=== PATIENT | female | born 1925 | race African-American/Black ===

== ENCOUNTER 2016-10-25 11:00 | Emergency (ER) | payer MEDICARE ==
[~2016-10-25] VITALS: Ht 160 cm; Wt 42.2 kg
[2016-10-25 11:30] VITALS: BP 145/56
[2016-10-25 12:13] VITALS: BP 151/66
[2016-10-25 12:51] LABS: APPEARANCE,URINE CLEAR; BASOPHILS % (AUTO) 0.3 % (0.0-2.0); EOSINOPHILS % (AUTO) 0.2 % (0.0-3.0); KETONES,URINE NEGATIVE (NEGATIVE); LEUKOCYTE ESTERASE ,URINE NEGATIVE (NEGATIVE); LYMPHOCYTES % (AUTO) 12.1 % (20.0-45.0); MEAN CORPUSCULAR HEMOGLOBIN 28.8 PG (27.0-31.0); MEAN CORPUSCULAR HGB CONC 30.9 G/DL (32.0-36.0); MEAN CORPUSCULAR VOLUME 93 FL (80-99); MEAN PLATELET VOLUME 6.1 FL (6.5-10.1); MONOCYTES % (AUTO) 6.3 % (1.0-10.0); NEUTROPHILS % (AUTO) 81.2 % (45.0-75.0); NITRITE,URINE NEGATIVE (NEGATIVE); PH,URINE 7 (4.5-8.0); PLATELET COUNT 241 K/UL (150-450); PROTEIN,URINE NEGATIVE (NEGATIVE); RED BLOOD COUNT 3.43 M/UL (4.20-5.40); RED CELL DISTRIBUTION WIDTH 12.9 % (11.6-14.8); UROBILINOGEN,URINE NORMAL MG/DL (0.0-1.0); WHITE BLOOD COUNT 7.7 K/UL (4.8-10.8)
[2016-10-25 12:56] LABS: TROPONIN I < 0.30 ng/mL (<=0.30)
[2016-10-25 12:57] LABS: ALANINE AMINOTRANSFERASE 15 U/L (3-33); ALBUMIN/GLOBULIN RATIO 0.9 (1.0-2.7); ANION GAP 15 (5-15); ASPARTATE AMINO TRANSFERASE 27 U/L (5-40); CALCIUM 10.5 mg/dL (8.6-10.2); CARBON DIOXIDE 26 mEQ/L (20-30); CHLORIDE 102 mEQ/L (98-107); CREATININE 1.2 mg/dL (0.5-0.9); HEMOLYSIS 5; POTASSIUM 3.9 mEQ/L (3.4-4.9); SODIUM 143 mEQ/L (135-145); TOTAL PROTEIN 8.3 g/dL (6.6-8.7)
[2016-10-25 13:08] LABS: CKMB 2.2 ng/mL (< 3.8)
[2016-10-25 13:45] VITALS: BP 151/66
--- NOTE | 2016-10-25 14:02 | Emergency Room Report ---
History of Present Illness General Chief Complaint: Dizziness Source: EMS Present Illness HPI 89-year-old female presents to ED her evaluation. Son is at bedside states that patient fell dizzy and weak this morning. Episode of shaking which lasted for several seconds and stopped. Symptoms started shortly after taking her new medication Aricept which was prescribed yesterday. The medication for the first time this morning. Upon arrival patient states she feels fine. Denies any dizziness or weakness. Denies any fevers or chills. Denies cough. Denies chest pain or shortness of breath. No other aggravating or relieving factors. Denies any other associated symptoms Allergies: Coded Allergies: No Known Allergies (Verified , 03/24/07) Patient History Past Medical History: HTN, dementia Past Surgical History: none Social History: Denies: alcohol use, drug use, smoking Last Menstrual Period: na Now: No Immunizations: UTD Reviewed Nursing Documentation: PMH: Agreed, PSxH: Agreed Nursing Documentation-PMH Past Medical History: No History, Except For Hx Hypertension: Yes History Of Psychiatric Problem: Yes - dementia Review of Systems All Other Systems: negative except mentioned in HPI Physical Exam Vital Signs Date Time Temp Pulse Resp B/P Pulse Ox O2 Delivery O2 Flow Rate FiO2 10/25/16 10:53 98.6 84 18 144/64 98 Room Air Sp02 EP Interpretation: reviewed, normal General Appearance: no apparent distress, alert, GCS 15, non-toxic Head: normocephalic, atraumatic Eyes: bilateral eye PERRL, bilateral eye normal inspection ENT: hearing grossly normal, normal pharynx, no angioedema, normal voice Neck: full range of motion, supple/symm/no masses Respiratory: chest non-tender, lungs clear, normal breath sounds, speaking full sentences Cardiovascular #1: regular rate, rhythm, no edema Cardiovascular #2: 2+ carotid (R), 2+ carotid (L), 2+ radial (R), 2+ radial (L) , 2+ dorsalis pedis (R), 2+ dorsalis pedis (L) Gastrointestinal: normal bowel sounds, non tender, soft, non-distended, no guarding, no rebound Rectal: deferred Genitourinary: normal inspection, no CVA tenderness Musculoskeletal: back normal, gait/station normal, normal range of motion, non- tender Neurologic: alert, oriented x3, responsive, motor strength/tone normal, sensory intact, speech normal Psychiatric: judgement/insight normal, memory normal, mood/affect normal, no suicidal/homicidal ideation Reflexes: 3+ bicep (R), 3+ bicep (L), 3+ tricep (R), 3+ tricep (L), 3+ knee (R) , 3+ knee (L) Skin: normal color, no rash, warm/dry, well hydrated Lymphatic: no adenopathy Medical Decision Making Diagnostic Impression: Primary Impression: Adverse reaction to drug Qualified Codes: T88.7XXA - Unspecified adverse effect of drug or medicament, initial encounter Additional Impression: Dizziness ER Course 89-year-old female presents to ED for evaluation of dizziness, shaking episode. Differential-UTI, sepsis, dehydration, adverse reaction She placed on stretcher. After initial history and physical I ordered labs, IV fluids, EKG, chest x-ray Lab- no leukocytosis, hemoglobin/hematocrit stable, electrolytes ok., troponins negative, UA negative Chest x-ray no acute process EKG no acute, no ischemic changes I discussed case with PMD ; he stated that this is likely reaction to the Aricept. agrees to discontinuing the medication but believes with stable vitals and negative workup that patient can be safely discharged home Patient and family agree Diagnoses-adverse reaction to drug, dizziness Stable discharged to home. Followup with PMD. Return to ED if symptoms recur or worsen Labs Test 10/25/16 11:20 White Blood Count 7.7 K/UL (4.8-10.8) Red Blood Count 3.43 M/UL (4.20-5.40) Hemoglobin 9.9 G/DL (12.0-16.0) Hematocrit 32.0 % (37.0-47.0) Mean Corpuscular Volume 93 FL (80-99) Mean Corpuscular Hemoglobin 28.8 PG (27.0-31.0) Mean Corpuscular Hemoglobin Concent 30.9 G/DL (32.0-36.0) Red Cell Distribution Width 12.9 % (11.6-14.8) Platelet Count 241 K/UL (150-450) Mean Platelet Volume 6.1 FL (6.5-10.1) Neutrophils (%) (Auto) 81.2 % (45.0-75.0) Lymphocytes (%) (Auto) 12.1 % (20.0-45.0) Monocytes (%) (Auto) 6.3 % (1.0-10.0) Eosinophils (%) (Auto) 0.2 % (0.0-3.0) Basophils (%) (Auto) 0.3 % (0.0-2.0) Urine Color Pale yellow Urine Appearance Clear Urine pH 7 (4.5-8.0) Urine Specific [place] 1.010 (1.005-1.035) Urine Protein Negative (NEGATIVE) Urine Glucose (UA) Negative (NEGATIVE) Urine Ketones Negative (NEGATIVE) Urine Occult Blood Negative (NEGATIVE) Urine Nitrite Negative (NEGATIVE) Urine Bilirubin Negative (NEGATIVE) Urine Urobilinogen Normal MG/DL (0.0-1.0) Urine Leukocyte Esterase Negative (NEGATIVE) Sodium Level 143 mEQ/L (135-145) Potassium Level 3.9 mEQ/L (3.4-4.9) Chloride Level 102 mEQ/L (98-107) Carbon Dioxide Level 26 mEQ/L (20-30) Anion Gap 15 (5-15) Blood Urea Nitrogen 19 mg/dL (7-23) Creatinine 1.2 mg/dL (0.5-0.9) Estimat Glomerular Filtration Rate mL/min (>60) Glucose Level 133 mg/dL (74-106) Calcium Level 10.5 mg/dL (8.6-10.2) Total Bilirubin 0.3 mg/dL (0.0-1.2) Aspartate Amino Transf (AST/SGOT) 27 U/L (5-40) Alanine Aminotransferase (ALT/SGPT) 15 U/L (3-33) Alkaline Phosphatase 48 U/L (35-104) Total Creatine Kinase 90 U/L (26-140) Creatine Kinase MB 2.2 ng/mL (< 3.8) Creatine Kinase MB Relative Index 2.4 Troponin I < 0.30 ng/mL (<=0.30) Total Protein 8.3 g/dL (6.6-8.7) Albumin 4.0 g/dL (3.5-5.2) Globulin 4.3 g/dL Albumin/Globulin Ratio 0.9 (1.0-2.7) EKG Diagnostic Results Rate: normal Rhythm: NSR ST Segments: no acute changes ASA given to the pt in ED: No Rhythm Strip Diag. Results EP Interpretation: yes Rhythm: NSR, no PVC's, no ectopy Chest X-Ray Diagnostic Results EP Interpretation: Yes Findings: no consolidation, no effusion, no pneumothorax, no acute cardiopulmonary disease Number of Views: 1 Last Vital Signs Date Time Temp Pulse Resp B/P Pulse Ox O2 Delivery O2 Flow Rate FiO2 10/25/16 12:13 83 19 151/66 99 Room Air 10/25/16 10:53 98.6 Status: improved Disposition: HOME, SELF-CARE Condition: Stable Referrals: VANNESA GUZMÁN (PCP) Patient Instructions: Basics of Medicine Management ALEXUS BARKLEY M.D. Oct 25, 2016 14:02
--- NOTE | 2016-10-25 16:16 | Diagnostic Imaging Report ---
Indication: Shortness of breath Technique: One view of the chest Comparison: 03/24/2007 Findings: No acute infiltrates, effusions, or congestion. Tortuous calcified aorta. Normal heart size. Upper mediastinum unremarkable. No significant interim change Impression: No acute process.
--- NOTE | 2016-11-02 15:52 | Cardiology Report ---
APPROVED REPORT EKG Measurement Heart [id number] Normal sinus rhythm Normal ECG
== END 2016-10-25 13:45 | disposition home or self-care (01) ==
LOC: EDBD 11:00 → EMR 11:25
DX: R42 Dizziness and giddiness (principal); T44.1X5A Adverse effect of other parasympathomimetics [cholinergics], initial encounter; Y92.009 Unspecified place in unspecified non-institutional (private) residence as the place of occurrence of the external cause; I10 Essential (primary) hypertension; F03.90 Unspecified dementia, unspecified severity, without behavioral disturbance, psychotic disturbance, mood disturbance, and anxiety
CPT/HCPCS: 36415; 71010; 80053; 81003; 82550; 82553; 84484; 85025; 93005; 96374